=== PATIENT | female | born 1965 | race Caucasian/White ===

== ENCOUNTER 2016-04-16 08:04 | Outpatient (CLI) | payer OTHER ==
--- NOTE | 2016-04-16 10:17 | DIAGNOSTIC IMAGING REPORT ---
PROCEDURE: CT IVP CLINICAL INDICATION: MICRO HEMATURIA TECHNIQUE: Preliminary AP and lateral press setup operator views of the abdomen were obtained. Subsequently, noncontrast axial images were obtained of the entire abdomen and pelvis. 125 ml of Isovue 300 was injected intravenously, and axial images were obtained of the abdomen and pelvis with biphasic imaging of the liver and kidneys, followed by sagittal and coronal reformations. Postinjection AP press setup operator view of the abdomen was also obtained. COMPARISON: None. FINDINGS: NONCONTRAST ABDOMEN: 6 x 4 mm proximal left ureteral calculus with mild left hydronephrosis. There are no additional urinary calculi. CONTRAST ABDOMEN: Small right renal cysts. Normal ureters. Minor left basilar scarring. Heart size is normal. Liver, gallbladder, pancreas, spleen and adrenal glands are normal. Normal abdominal aorta. Nonspecific bowel gas pattern. Small hiatal hernia. NONCONTRAST PELVIS: No evidence of bladder calculi. CONTRAST PELVIS: Normal bladder. Right lower quadrant surgical changes suggestive of appendectomy. Mild sigmoid diverticulosis. Hysterectomy. No suspicious mass, inflammatory changes or free fluid. Bones are unremarkable. IMPRESSION: 1. 6 x 4 mm proximal left ureteral calculus with mild left hydronephrosis. 2. Small right renal cysts 3. Small hiatal hernia 4. Hysterectomy and probable appendectomy 5. Mild sigmoid diverticulosis 6. Results called to Dr. Walter Augustine's office ([place]). All CT scans at this facility use dose modulation, iterative reconstruction, and/or weight-based dosing when appropriate to reduce radiation dose to as low as reasonably achievable.
--- NOTE | 2016-04-16 10:17 | DIAGNOSTIC IMAGING REPORT ---
PROCEDURE: CT IVP CLINICAL INDICATION: MICRO HEMATURIA TECHNIQUE: Preliminary AP and lateral director biomedical engineering views of the abdomen were obtained. Subsequently, noncontrast axial images were obtained of the entire abdomen and pelvis. 125 ml of Isovue 300 was injected intravenously, and axial images were obtained of the abdomen and pelvis with biphasic imaging of the liver and kidneys, followed by sagittal and coronal reformations. Postinjection AP director biomedical engineering view of the abdomen was also obtained. COMPARISON: None. FINDINGS: NONCONTRAST ABDOMEN: 6 x 4 mm proximal left ureteral calculus with mild left hydronephrosis. There are no additional urinary calculi. CONTRAST ABDOMEN: Small right renal cysts. Normal ureters. Minor left basilar scarring. Heart size is normal. Liver, gallbladder, pancreas, spleen and adrenal glands are normal. Normal abdominal aorta. Nonspecific bowel gas pattern. Small hiatal hernia. NONCONTRAST PELVIS: No evidence of bladder calculi. CONTRAST PELVIS: Normal bladder. Right lower quadrant surgical changes suggestive of appendectomy. Mild sigmoid diverticulosis. Hysterectomy. No suspicious mass, inflammatory changes or free fluid. Bones are unremarkable. IMPRESSION: 1. 6 x 4 mm proximal left ureteral calculus with mild left hydronephrosis. 2. Small right renal cysts 3. Small hiatal hernia 4. Hysterectomy and probable appendectomy 5. Mild sigmoid diverticulosis 6. Results called to Dr. Walter Augustine's office ([place]). All CT scans at this facility use dose modulation, iterative reconstruction, and/or weight-based dosing when appropriate to reduce radiation dose to as low as reasonably achievable.
== END 2016-04-16 23:00 ==
LOC: CT SRH 08:04
DX: N13.2 Hydronephrosis with renal and ureteral calculous obstruction (principal); N28.1 Cyst of kidney, acquired; K57.30 Diverticulosis of large intestine without perforation or abscess without bleeding
CPT/HCPCS: 90074; 91631; 92560

== ENCOUNTER 2016-08-05 13:37 | Emergency (ER) | payer OTHER ==
--- NOTE | 2016-08-05 16:07 | DIAGNOSTIC IMAGING REPORT ---
PROCEDURE: CT ABDOMEN/PELVIS W/O CONTRAST INDICATION: HX OF STONES, left flank pain. TECHNIQUE: Noncontrast axial images were obtained of the entire abdomen and pelvis with sagittal and coronal reformations. COMPARISON: CT IVP 04/16/2016. FINDINGS: ABDOMEN: The previously noted 5 mm proximal left ureteral calculus is now located at the left UVJ with mild to moderate left hydroureteronephrosis. Mild enlargement of left kidney with minor perinephric edema. No additional urinary calculi. Small right renal cyst. Lung base are clear. Heart size is normal. Liver, gallbladder, pancreas, spleen and adrenal glands are normal. Normal abdominal aorta. Nonspecific bowel gas pattern. Small hiatal hernia. PELVIS: Right lower quadrant surgical changes suggestive of an appendectomy. Mild sigmoid diverticulosis. Hysterectomy. Normal bladder. No inflammatory changes or free fluid. Bones are unremarkable. IMPRESSION: 1. 5 mm left UVJ calculus with mild to moderate left hydroureteronephrosis 2. Appendectomy and hysterectomy 3. Mild sigmoid diverticulosis 4. Results discussed with Lissy Arias All CT scans at this facility use dose modulation, iterative reconstruction, and/or weight-based dosing when appropriate to reduce radiation dose to as low as reasonably achievable.
--- NOTE | 2016-08-05 16:17 | ED CLINICAL REPORT ---
Clinical Report - Physicians/Mid Levels [facility] [address] [place] [address] 08/05/2016 13:36 Patient: AMY CHA Time Seen: 14:03; initial patient contact, initial documentation, patient care assumed. Arrived- By private vehicle. Historian- patient. HISTORY OF PRESENT ILLNESS Chief Complaint: DYSURIA. This started yesterday and still present. It was abrupt in onset and has been intermittent. The symptoms are described as severe. The patient has had abdominal pain and lower back pain. No pelvic pain, vaginal pain, flank pain, abnormal bleeding or vaginal discharge. No urinary frequency, urgency of urination or hematuria. The patient has had pain with urination. Sexually active. (states she was dx with kidney stones in Apr, by CT scan by urologist, and was told that the stones were small and would pass, but she thinks they are still there, c/o pain weekly, states the pain comes and goes, and got worse yesterday, when she felt like she couldn't urinate and it hurts to go). Denies current . Not receiving care. Similar symptoms previously: Frequently, as bad. Recent medical care: Not recently seen/assessed. REVIEW OF SYSTEMS No nausea, vomiting, diarrhea, fever or difficulty breathing. No chest pain. All systems otherwise negative, except as recorded above. PAST HISTORY See nurses notes. ( PROBLEMS: Anxiety Reaction. Depression. --13:48 Sheriff Lacie, RElN.). Urinary calculi. SOCIAL HISTORY Never smoker. No alcohol use or drug use. No recent travel. Is a local resident. FAMILY HISTORY Negative. ADDITIONAL NOTES The nursing notes have been reviewed with agreement regarding the chief complaint, HPI, ROS, PMH and patient medications and allergies. PHYSICAL EXAM Vital Signs: 08/05/2016 13:46 BP: 143/77. HR: 59. RR: 20. O2 saturation: 100%. Temp: 97.6 F. Pain level now: 8/10. Have been reviewed as normal and appear to be correct. Appearance: Alert. Oriented X3. No acute distress. HEENT: Normal external inspection. ENT: Pharynx normal. Neck: Neck supple. CVS: Heart sounds normal. Respiratory: No respiratory distress. Breath sounds normal. Chest nontender. Abdomen: Soft and nontender. Bowel sounds normal. No organomegaly. No mass. Back: Normal external inspection. Skin: Skin warm and dry. Normal skin color. No rash. Normal skin turgor. Extremities: Extremities nontender. No lower extremity edema. Neuro: Oriented X 3. Mood/affect normal. No motor deficit. No sensory deficit. LABS, X-RAYS, AND EKG Abdominal CT: . IMPRESSION: 1. 5 mm left UVJ calculus with mild to moderate left hydroureteronephrosis 2. Appendectomy and hysterectomy 3. Mild sigmoid diverticulosis 4. Results discussed with Lissy Arias All CT scans at this facility use dose modulation, iterative reconstruction, and/or weight-based dosing when appropriate to reduce radiation dose to as low as reasonably achievable. Electronically Final signed by:Tristan Roche MD 08/05/2016 4:07:01 PM. The study was interpreted by the radiologist and discussed with the radiologist. Interpretation time: 16:08. Laboratory Tests: UA-Culture if indicated: (BRANDI: 08/05/2016 14:25) ( MsgRcvd 08/05/2016 14:47) Final results Test Result Flag Units (Reference) URINE COLOR STRAW URINE APPEARANCE CLEAR URINE GLUCOSE NEGATIVE (NEGATIVE) URINE BILIRUBIN NEGATIVE (NEGATIVE) URINE KETONE NEGATIVE (NEGATIVE) URINE SPECIFIC GRAVITY <= 1.005 L (1.010-1.030) URINE PH 6.0 (5.0-8.0) URINE PROTEIN NEGATIVE (NEGATIVE) URINE UROBILINOGEN 0.2 EU/dL (0.2-1.0) URINE NITRITE NEGATIVE (NEGATIVE) URINE BLOOD 2+ (NEGATIVE) URINE LEUK ESTERASE NEGATIVE (NEGATIVE) URINE RBC RARE rbc/hpf (0-1) URINE WBC RARE wbc/hpf (0-1) URINE EPITHELIAL CELLS RARE EPI/hpf (0-5) URINE BACTERIA NONE SEEN (NONE SEEN) URINE COMMENT CULT NOT INDICATED URINE CULTURES ARE SET-UP BASED ON THE FOLLOWING CRITERIA:POSITIVE NITRITEPOSITIVE LEUKOCYTE ESTERASEGREATER THAN 10 WHITE BLOOD CELLSMODERATE (2+) OR GREATER BACTERIA Urine: (BRANID: 08/05/2016 14:25) ( AlgRcvd 08/05/2016 14:36) Final results Test Result Flag Units (Reference) URINE NEGATIVE CBC w Diff: (BRANDI: 08/05/2016 14:01) ( MsgRcvd 08/05/2016 14:28) Final results Test Result Flag Units (Reference) WHITE BLOOD COUNT 6.1 K/uL (4.5-11.5) RED BLOOD COUNT 4.51 M/uL (4.00-5.20) HEMOGLOBIN 13.0 gm/dL (12.0-16.0) HEMATOCRIT 39.6 % (36.0-46.0) MEAN CELL VOLUME 88 fL (80-100) MEAN CORPUSCULAR HGB 29 pg (26-34) MEAN CORPUSCULAR HGB CONC 33 g/dL (31-37) RED CELL DISTRIBUTION WIDTH 14.1 % (11.6-14.8) PLATELET COUNT 203 K/uL (150-400) NEUTROPHIL % 71.1 % (50-75) LYMPH % 20.3 L % (25-40) MONO % 7.5 % (3-14) EOSINOPHIL % 0.8 % (0-4) BASOPHIL % 0.3 % (0-2) CMP: (BRANDI: 08/05/2016 14:01) ( AlgRcvd 08/05/2016 15:00) Final results Test Result Flag Units (Reference) GLUCOSE 90 mg/dL (70-110) BUN 17 mg/dL (7-18) CREATININE 1.1 mg/dL (0.6-1.3) Estimated GFR 55.66 mL/min Estimated GFR- >60 mL/min Note: Persistent reduction over 3 months in eGFR<60 mL/min/1.73 m2 defines CKD. Patients with eGFR values>=60 mL/min/1.73 m2 may also have CKD if evidence ofpersistent proteinuria. Additional information may be foundat www.kidney.org. SODIUM 136 mmol/L (136-145) POTASSIUM 3.6 mmol/L (3.5-5.1) CHLORIDE 100 mmol/L (98-107) CARBON DIOXIDE 26 mmol/L (21-32) CALCIUM 8.6 mg/dL (8.5-10.1) TOTAL PROTEIN 7.2 g/dL (6.4-8.2) ALBUMIN 4.0 g/dL (3.3-5.0) BILIRUBIN, TOTAL 0.4 mg/dL (0.0-1.0) ALKALINE PHOSPHATASE 53 U/L (46-116) AST (SGOT) 16 U/L (15-37) ALT (SGPT) 19 U/L (12-78) LIPASE 193 U/L (73-393) AMYLASE 50 U/L (25-115) . PROGRESS AND PROCEDURES Course of Care: nurse reporting bladder scan 208 and pt stated she voided large amount in restroom 15:07 08/05/16. pt aware of lab results and ct order. Patient counseled in person regarding the patient's stable condition, test results and diagnosis. 16:08. Differential Diagnosis: Other possible considerations: kidney stones, pyelo, uti, urinary retention, cystitis, kidney insufficiency/failure. Above considerations are based on history, physical exam, reassessment and laboratory data. Differential diagnosis was discussed with patient. Disposition: Discharged home in good and improved condition (16:16). Condition: good and stable. CLINICAL IMPRESSION Ureterolithiasis (single stone) in the left ureter with renal colic and hydronephrosis. No acute pyelonephritis, urinary tract infection or hematuria. INSTRUCTIONS Do not work today, tomorrow. Drink plenty of fluids. (start flomax as directed and discussed, strain all urine). Warnings: GENERAL WARNINGS: Return or contact your physician immediately if your condition worsens or changes unexpectedly, if not improving as expected, or if other problems arise. Specifically return if problem worsens. Prescription Medications: Zofran 4 mg: Take 1 orally every six hours as needed for nausea/vomiting. Dispense ten (10). No refills. Substitution is permissible. [place] 5 mg / 325 mg tablets: take 1 to 2 orally every 6 hours as needed for pain. Dispense fifteen (15). No refills. Substitution is permissible. Toradol 10 mg tablets: Take 1 tablet orally every 6 hours as needed. Dispense fifteen (15). No refills. Substitution is permissible. Follow-up: Follow up with your doctor in about three days even if well. Call for an appointment. Summary of care provided to patient. Understanding of the discharge instructions verbalized by patient. Follow-up with: Jose Lock MD, Urology, , [address] [facility] , [place] [address]; Jose Campos MD, Urology, , [address] [place] [address] Follow up in about three days as needed. Call for an appointment. Summary of care provided to patient. (Electronically signed by Lissy Arias A.R.N.P. 08/05/2016 17:46)
--- NOTE | 2016-08-05 16:17 | ED NURSING NOTES ---
Clinical Report - Nurses [facility] [place] [address] 08/05/2016 13:36 Patient: AMY CHA TRIAGE Chief Complaint: PAINFUL URINATION. --13:50 Sheriff Medellin R.N. 13:46 08/05/16. BP: 143/77. HR: 59. RR: 20. O2 saturation: 100%. Temp: 97.6 F. Pain level now: 10/08. --13:50 Sheriff Medellin R.N. Weight: 56.6 kg stated. Height/Length: 61 inches Per Patient. BMI: 23.6. --13:48 Sheriff Medellin R.N. Medications Prozac Oral 40mg, daily. Wellbutrin Oral 150 mg, daily. --13:47 Sheriff Medellin R.N. Allergies None. --13:47 Sheriff Medellin R.N. History ( History of kidney stones. Abdominal and back pain worst this morning. Dysuria). SURGERY HX: Had hysterectomy. SOCIAL HX: Never smoker. No alcohol use or drug use. FALL RISK ASSESSMENT: Fall risk assessment completed. No fall risk identified. NUTRITIONAL RISK ASSESSMENT: The nutritional risk assessment revealed no deficiencies. FUNCTIONAL ASSESSMENT: Functional assessment: no impairments noted. LEARNING NEEDS ASSESSMENT: The learning needs assessment revealed no barriers. SKIN INTEGRITY ASSESSMENT: Skin integrity risk assessment completed. No skin integrity risk identified. --13:50 Sheriff Medellin R.N. PROBLEMS: Anxiety Reaction. Depression. --13:48 Sheriff Medellin R.N. PHYSICAL ASSESSMENT Ambulatory to room. Patient gowned. GENERAL / NEURO / PSYCH: Alert. Oriented X 4. Appears in no acute distress. HEENT: Mucous membranes are pink. RESPIRATORY: Respirations not labored. CVS: Capillary refill less than 2 seconds. SKIN: Skin is warm and dry. --13:50 Sheriff Medellin R.N. NURSING PROGRESS NOTES Head of bed elevated. Two patient identifiers checked. Call light placed in reach. Side rails up x 2. Bed placed in lowest position. Brakes of bed on. --13:51 Sheriff Medellin R.N. 14:05 08/05/2016 Started bag #1 1000 mL IV Fluids IV NS (Saline); at 1000 mL/hr over 1 hour(s) via site #1. Allergies verified and confirmed 5 rights. IV patency established. IV site checked: no pain, redness, or swelling. IV flushed thoroughly pre- and post-medication administration. --14:15 Sheriff Medellin R.N. 14:14 08/05/2016 Site #1 started via IV in the right antecubital space with an 20g angiocath, with aseptic technique and good blood return; one attempt. Blood drawn: rainbow set. Labeled in the presence of the patient and sent to the lab. Saline lock flushed with 10 mL saline. --14:14 Sheriff Medellin R.N. 14:18 08/05/2016 Toradol IVP 30 mg given over 1 minute(s) via site #1. Allergies verified and confirmed 5 rights. IV patency established. IV site checked: no pain, redness, or swelling. IV flushed thoroughly pre- and post-medication administration. IVP given by RN. --14:18 Sheriff Medellin R.N. ( Patient bladder scanned, 210ml.). --15:02 Amari Goldstein, ER Tech1. DISPOSITION / DISCHARGE 16:45 08/05/2016 Site #1 removed upon discharge. Bandaid applied. --16:45 Sheriff Medellin R.N. No learning barriers present. Discharge instructions provided and reviewed with the patient. Reviewed medication(s) side effects, precautions, dosing and course information. Prescription(s) given to the parent. Patient verbalized understanding. Written instructions provided in [place]. The patient was discharged by the physician. She was discharged home and accompanied by spouse. She left the Emergency Department ambulatory and via private vehicle. Patient driving. --16:46 Sheriff Medellin R.N. Locked/Released at 08/05/2016 16:48 by Sheriff Medellin R.N.
--- NOTE | 2016-08-05 16:17 | ED NURSING NOTES ---
Clinical Report - Nurses [facility] [place] [address] [place] [address] 08/05/2016 13:36 Patient: AMY CHA TRIAGE Chief Complaint: PAINFUL URINATION. --13:50 Sheriff Medellin R.N. 13:46 08/05/16. BP: 143/77. HR: 59. RR: 20. O2 saturation: 100%. Temp: 97.6 F. Pain level now: 10/08. --13:50 Sheriff Medellin R.N. Weight: 56.6 kg stated. Height/Length: 61 inches Per Patient. BMI: 23.6. --13:48 Sheriff Medellin R.N. Medications Prozac Oral 40mg, daily. Wellbutrin Oral 150 mg, daily. --13:47 Sheriff Medellin R.N. Allergies None. --13:47 Sheriff Medellin R.N. History ( History of kidney stones. Abdominal and back pain worst this morning. Dysuria). SURGERY HX: Had hysterectomy. SOCIAL HX: Never smoker. No alcohol use or drug use. FALL RISK ASSESSMENT: Fall risk assessment completed. No fall risk identified. NUTRITIONAL RISK ASSESSMENT: The nutritional risk assessment revealed no deficiencies. FUNCTIONAL ASSESSMENT: Functional assessment: no impairments noted. LEARNING NEEDS ASSESSMENT: The learning needs assessment revealed no barriers. SKIN INTEGRITY ASSESSMENT: Skin integrity risk assessment completed. No skin integrity risk identified. --13:50 Sheriff Medellin R.N. PROBLEMS: Anxiety Reaction. Depression. --13:48 Sheriff Medellin R.N. PHYSICAL ASSESSMENT Ambulatory to room. Patient gowned. GENERAL / NEURO / PSYCH: Alert. Oriented X 4. Appears in no acute distress. HEENT: Mucous membranes are pink. RESPIRATORY: Respirations not labored. CVS: Capillary refill less than 2 seconds. SKIN: Skin is warm and dry. --13:50 Sheriff Medellin R.N. NURSING PROGRESS NOTES Head of bed elevated. Two patient identifiers checked. Call light placed in reach. Side rails up x 2. Bed placed in lowest position. Brakes of bed on. --13:51 Sheriff Medellin R.N. 14:05 08/05/2016 Started bag #1 1000 mL IV Fluids IV NS (Saline); at 1000 mL/hr over 1 hour(s) via site #1. Allergies verified and confirmed 5 rights. IV patency established. IV site checked: no pain, redness, or swelling. IV flushed thoroughly pre- and post-medication administration. --14:15 Sheriff Medellin R.N. 14:14 08/05/2016 Site #1 started via IV in the right antecubital space with an 20g angiocath, with aseptic technique and good blood return; one attempt. Blood drawn: rainbow set. Labeled in the presence of the patient and sent to the lab. Saline lock flushed with 10 mL saline. --14:14 Sheriff Medellin R.N. 14:18 08/05/2016 Toradol IVP 30 mg given over 1 minute(s) via site #1. Allergies verified and confirmed 5 rights. IV patency established. IV site checked: no pain, redness, or swelling. IV flushed thoroughly pre- and post-medication administration. IVP given by RN. --14:18 Sheriff Medellin R.N. ( Patient bladder scanned, 210ml.). --15:02 Amari Goldstein, ER Tech1. DISPOSITION / DISCHARGE 16:45 08/05/2016 Site #1 removed upon discharge. Bandaid applied. --16:45 Sheriff Medellin R.N. No learning barriers present. Discharge instructions provided and reviewed with the patient. Reviewed medication(s) side effects, precautions, dosing and course information. Prescription(s) given to the parent. Patient verbalized understanding. Written instructions provided in [place]. The patient was discharged by the physician. She was discharged home and accompanied by spouse. She left the Emergency Department ambulatory and via private vehicle. Patient driving. --16:46 Sheriff Medellin R.N. Locked/Released at 08/05/2016 16:48 by Sheriff Medellin R.N.
--- NOTE | 2016-08-05 16:17 | ED ORDER SUMMARY ---
..... Patient: AMY CHA OrderSheet [facility] VisitID: [id number] [place] [address] 51y, F Registration Date/Time: 08/05/2016 ORDER SHEET Weight: 56.6 kg (stated) Allergies: None GENERAL ORDERS: UA-Culture if indicated Urgent (14:10 08/05/2016 HBivens A.R.N.P.) (Ack 14:12 LNations ER Tech1) CBC w Diff Urgent (14:08/05/2016 HBivens A.R.N.P.) (Ack 14:12 LNations ER Tech1) CMP Urgent (14:08/05/2016 HBivens A.R.N.P.) (Ack 14:12 LNations ER Tech1) Amylase Urgent (14:10 08/05/2016 HBivens A.R.N.P.) (Ack 14:12 LNations ER Tech1) Lipase Urgent (14:08/05/2016 HBivens A.R.N.P.) (Ack 14:13 LNations ER Tech1) Urine Urgent (14:10 08/05/2016 HBivens A.R.N.P.) (Ack 14:13 LNations ER Tech1) Bladder Scan (14:10 08/05/2016 HBivens A.R.N.P.) (14:45 SSambou R.N.) CT Abd/Pel wo Cont Urgent (15:06 08/05/2016 HBivens A.R.N.P.) (Ack 15:21 LNations ER Tech1) (16:33 MCampbell) Urine Strainer (16:18 08/05/2016 HBivens A.R.N.P.) MEDICATION ORDERS: IV FLUIDS: IV NS : initial bolus 1000 mL (1000 mL/hr), then none - for X1 (NOW) (14:10 08/05/2016 HBivens A.R.N.P.) (14:15 SSambou R.N.) Toradol IV 30 mg (NOW) (14:08/05/2016 HBivens A.R.N.P.) (14:18 SSambou R.N.) IV Saline Lock (14:10 08/05/2016 Joni Mathews.R.N.P.) (14:14 Torie Gallegos.Sabrina) ORDER SHEET NOTES: [Electronically signed by Sheriff Natasha Medellin (16:48 08/05/2016)] [Electronically signed by Lissy AriasRElNElPEl (17:46 08/05/2016)] [Electronically locked/signed by Sheriff Natasha Medellin (16:48 08/05/2016)]
--- NOTE | 2016-08-05 16:17 | ED ORDER SUMMARY ---
..... Patient: AMY CHA OrderSheet [facility] VisitID: [id number] [place] [address] 51y, F Registration Date/Time: 08/05/2016 ORDER SHEET Weight: 56.6 kg (stated) Allergies: None GENERAL ORDERS: UA-Culture if indicated Urgent (14:10 08/05/2016 HBivens A.R.N.P.) (Ack 14:12 LNations ER Tech1) CBC w Diff Urgent (14:08/05/2016 HBivens A.R.N.P.) (Ack 14:12 LNations ER Tech1) CMP Urgent (14:08/05/2016 HBivens A.R.N.P.) (Ack 14:12 LNations ER Tech1) Amylase Urgent (14:10 08/05/2016 HBivens A.R.N.P.) (Ack 14:12 LNations ER Tech1) Lipase Urgent (14:08/05/2016 HBivens A.R.N.P.) (Ack 14:13 LNations ER Tech1) Urine Urgent (14:10 08/05/2016 HBivens A.R.N.P.) (Ack 14:13 LNations ER Tech1) Bladder Scan (14:10 08/05/2016 HBivens A.R.N.P.) (14:45 SSambou R.N.) CT Abd/Pel wo Cont Urgent (15:06 08/05/2016 HBivens A.R.N.P.) (Ack 15:21 LNations ER Tech1) (16:33 MCampbell) Urine Strainer (16:18 08/05/2016 HBivens A.R.N.P.) MEDICATION ORDERS: IV FLUIDS: IV NS : initial bolus 1000 mL (1000 mL/hr), then none - for X1 (NOW) (14:10 08/05/2016 HBivens A.R.N.P.) (14:15 SSambou R.N.) Toradol IV 30 mg (NOW) (14:08/05/2016 HBivens A.R.N.P.) (14:18 SSambou R.N.) IV Saline Lock (14:10 08/05/2016 Joni Mathews.R.N.P.) (14:14 Torie Gallegos.Sabrina) ORDER SHEET NOTES: [Electronically signed by Sheriff Natasha Medellin (16:48 08/05/2016)] [Electronically signed by Lissy AriasRElNElPEl (17:46 08/05/2016)] [Electronically locked/signed by Sheriff Natasha Medellin (16:48 08/05/2016)]
--- NOTE | 2016-08-05 16:17 | ED CLINICAL REPORT ---
Clinical Report - Physicians/Mid Levels [facility] [address] [place] [address] 08/05/2016 13:36 Patient: AMY CHA Time Seen: 14:03; initial patient contact, initial documentation, patient care assumed. Arrived- By private vehicle. Historian- patient. HISTORY OF PRESENT ILLNESS Chief Complaint: DYSURIA. This started yesterday and still present. It was abrupt in onset and has been intermittent. The symptoms are described as severe. The patient has had abdominal pain and lower back pain. No pelvic pain, vaginal pain, flank pain, abnormal bleeding or vaginal discharge. No urinary frequency, urgency of urination or hematuria. The patient has had pain with urination. Sexually active. (states she was dx with kidney stones in Apr, by CT scan by urologist, and was told that the stones were small and would pass, but she thinks they are still there, c/o pain weekly, states the pain comes and goes, and got worse yesterday, when she felt like she couldn't urinate and it hurts to go). Denies current . Not receiving care. Similar symptoms previously: Frequently, as bad. Recent medical care: Not recently seen/assessed. REVIEW OF SYSTEMS No nausea, vomiting, diarrhea, fever or difficulty breathing. No chest pain. All systems otherwise negative, except as recorded above. PAST HISTORY See nurses notes. ( PROBLEMS: Anxiety Reaction. Depression. --13:48 Sheriff Lacie, RElN.). Urinary calculi. SOCIAL HISTORY Never smoker. No alcohol use or drug use. No recent travel. Is a local resident. FAMILY HISTORY Negative. ADDITIONAL NOTES The nursing notes have been reviewed with agreement regarding the chief complaint, HPI, ROS, PMH and patient medications and allergies. PHYSICAL EXAM Vital Signs: 08/05/2016 13:46 BP: 143/77. HR: 59. RR: 20. O2 saturation: 100%. Temp: 97.6 F. Pain level now: 8/10. Have been reviewed as normal and appear to be correct. Appearance: Alert. Oriented X3. No acute distress. HEENT: Normal external inspection. ENT: Pharynx normal. Neck: Neck supple. CVS: Heart sounds normal. Respiratory: No respiratory distress. Breath sounds normal. Chest nontender. Abdomen: Soft and nontender. Bowel sounds normal. No organomegaly. No mass. Back: Normal external inspection. Skin: Skin warm and dry. Normal skin color. No rash. Normal skin turgor. Extremities: Extremities nontender. No lower extremity edema. Neuro: Oriented X 3. Mood/affect normal. No motor deficit. No sensory deficit. LABS, X-RAYS, AND EKG Abdominal CT: . IMPRESSION: 1. 5 mm left UVJ calculus with mild to moderate left hydroureteronephrosis 2. Appendectomy and hysterectomy 3. Mild sigmoid diverticulosis 4. Results discussed with Lissy Arias All CT scans at this facility use dose modulation, iterative reconstruction, and/or weight-based dosing when appropriate to reduce radiation dose to as low as reasonably achievable. Electronically Final signed by:Tristan Roche MD 08/05/2016 4:07:01 PM. The study was interpreted by the radiologist and discussed with the radiologist. Interpretation time: 16:08. Laboratory Tests: UA-Culture if indicated: (BRANDI: 08/05/2016 14:25) ( MsgRcvd 08/05/2016 14:47) Final results Test Result Flag Units (Reference) URINE COLOR STRAW URINE APPEARANCE CLEAR URINE GLUCOSE NEGATIVE (NEGATIVE) URINE BILIRUBIN NEGATIVE (NEGATIVE) URINE KETONE NEGATIVE (NEGATIVE) URINE SPECIFIC GRAVITY <= 1.005 L (1.010-1.030) URINE PH 6.0 (5.0-8.0) URINE PROTEIN NEGATIVE (NEGATIVE) URINE UROBILINOGEN 0.2 EU/dL (0.2-1.0) URINE NITRITE NEGATIVE (NEGATIVE) URINE BLOOD 2+ (NEGATIVE) URINE LEUK ESTERASE NEGATIVE (NEGATIVE) URINE RBC RARE rbc/hpf (0-1) URINE WBC RARE wbc/hpf (0-1) URINE EPITHELIAL CELLS RARE EPI/hpf (0-5) URINE BACTERIA NONE SEEN (NONE SEEN) URINE COMMENT CULT NOT INDICATED URINE CULTURES ARE SET-UP BASED ON THE FOLLOWING CRITERIA:POSITIVE NITRITEPOSITIVE LEUKOCYTE ESTERASEGREATER THAN 10 WHITE BLOOD CELLSMODERATE (2+) OR GREATER BACTERIA Urine: (BRANDI: 08/05/2016 14:25) ( CogRcvd 08/05/2016 14:36) Final results Test Result Flag Units (Reference) URINE NEGATIVE CBC w Diff: (BRANDI: 08/05/2016 14:01) ( MsgRcvd 08/05/2016 14:28) Final results Test Result Flag Units (Reference) WHITE BLOOD COUNT 6.1 K/uL (4.5-11.5) RED BLOOD COUNT 4.51 M/uL (4.00-5.20) HEMOGLOBIN 13.0 gm/dL (12.0-16.0) HEMATOCRIT 39.6 % (36.0-46.0) MEAN CELL VOLUME 88 fL (80-100) MEAN CORPUSCULAR HGB 29 pg (26-34) MEAN CORPUSCULAR HGB CONC 33 g/dL (31-37) RED CELL DISTRIBUTION WIDTH 14.1 % (11.6-14.8) PLATELET COUNT 203 K/uL (150-400) NEUTROPHIL % 71.1 % (50-75) LYMPH % 20.3 L % (25-40) MONO % 7.5 % (3-14) EOSINOPHIL % 0.8 % (0-4) BASOPHIL % 0.3 % (0-2) CMP: (BRANDI: 08/05/2016 14:01) ( CogRcvd 08/05/2016 15:00) Final results Test Result Flag Units (Reference) GLUCOSE 90 mg/dL (70-110) BUN 17 mg/dL (7-18) CREATININE 1.1 mg/dL (0.6-1.3) Estimated GFR 55.66 mL/min Estimated GFR- >60 mL/min Note: Persistent reduction over 3 months in eGFR<60 mL/min/1.73 m2 defines CKD. Patients with eGFR values>=60 mL/min/1.73 m2 may also have CKD if evidence ofpersistent proteinuria. Additional information may be foundat www.kidney.org. SODIUM 136 mmol/L (136-145) POTASSIUM 3.6 mmol/L (3.5-5.1) CHLORIDE 100 mmol/L (98-107) CARBON DIOXIDE 26 mmol/L (21-32) CALCIUM 8.6 mg/dL (8.5-10.1) TOTAL PROTEIN 7.2 g/dL (6.4-8.2) ALBUMIN 4.0 g/dL (3.3-5.0) BILIRUBIN, TOTAL 0.4 mg/dL (0.0-1.0) ALKALINE PHOSPHATASE 53 U/L (46-116) AST (SGOT) 16 U/L (15-37) ALT (SGPT) 19 U/L (12-78) LIPASE 193 U/L (73-393) AMYLASE 50 U/L (25-115) . PROGRESS AND PROCEDURES Course of Care: nurse reporting bladder scan 208 and pt stated she voided large amount in restroom 15:07 08/05/16. pt aware of lab results and ct order. Patient counseled in person regarding the patient's stable condition, test results and diagnosis. 16:08. Differential Diagnosis: Other possible considerations: kidney stones, pyelo, uti, urinary retention, cystitis, kidney insufficiency/failure. Above considerations are based on history, physical exam, reassessment and laboratory data. Differential diagnosis was discussed with patient. Disposition: Discharged home in good and improved condition (16:16). Condition: good and stable. CLINICAL IMPRESSION Ureterolithiasis (single stone) in the left ureter with renal colic and hydronephrosis. No acute pyelonephritis, urinary tract infection or hematuria. INSTRUCTIONS Do not work today, tomorrow. Drink plenty of fluids. (start flomax as directed and discussed, strain all urine). Warnings: GENERAL WARNINGS: Return or contact your physician immediately if your condition worsens or changes unexpectedly, if not improving as expected, or if other problems arise. Specifically return if problem worsens. Prescription Medications: Zofran 4 mg: Take 1 orally every six hours as needed for nausea/vomiting. Dispense ten (10). No refills. Substitution is permissible. [place] 5 mg / 325 mg tablets: take 1 to 2 orally every 6 hours as needed for pain. Dispense fifteen (15). No refills. Substitution is permissible. Toradol 10 mg tablets: Take 1 tablet orally every 6 hours as needed. Dispense fifteen (15). No refills. Substitution is permissible. Follow-up: Follow up with your doctor in about three days even if well. Call for an appointment. Summary of care provided to patient. Understanding of the discharge instructions verbalized by patient. Follow-up with: Jose Lock MD, Urology, , [address] [place] , [place] [address]; Jose Campos MD, Urology, , [address] [place] [address] Follow up in about three days as needed. Call for an appointment. Summary of care provided to patient. (Electronically signed by Lissy Arias A.R.N.P. 08/05/2016 17:46)
--- NOTE | 2016-08-05 17:47 | ED MAR SUMMARY ---
..... Medication Administration Record [facility] [address] [place] [address] Patient: AMY CHA Visit ID: [id number] 51y, F Weight: 56.6 kg Height/Length: 61 in BMI: 23.6 ALLERGIES: None Start 14:05 08/05/2016 Sheriff Medellin R.N. Medication Administered: IV NS (SALINE), Dose: IV Fluids over 1 hour(s), Rate: 1000 mL/hr, Dispensed: 1000 mL bag, Site: #1. Medication Ordered: IV NS : initial bolus 1000 mL (1000 mL/hr), then none - for X1 (NOW). Given 14:18 08/05/2016 Sheriff Medellin R.N. Medication Administered: TORADOL [IVP], Dose: 30 mg IVP over 1 minute(s), Site: #1 right AC. Medication Ordered: Toradol IV 30 mg (NOW).
--- NOTE | 2016-08-05 17:47 | ED MED RECONCILIATION SUMMARY ---
Patient: AYM CHA Medication Reconciliation Report [facility] VisitID: [id number] [place] [address] 51y, F Registration Date/Time: 08/05/2016 Weight: 56.6 kg Height/Length: 61 in. BMI: 23.6 ALLERGIES: None The patient's Home Medications are listed below: THE FOLLOWING MEDICATIONS NEED TO BE RECONCILED: Prozac Oral 40mg, daily Wellbutrin Oral 150 mg, daily The source(s) of the original Home Medication information: Not obtained. The following Medications were given to the patient in the Emergency Department: IV NS IV Fluids bolus 0, then 1000 mL/hr, administered: 08/05/2016 2:05:00 PM Toradol [IVP] IVP 30 mg, administered: 08/05/2016 2:18:00 PM The following Medications were prescribed to the patient: Zofran 4 mg: Take 1 orally every six hours as needed for nausea/vomiting. Dispense ten (10). No refills. Substitution is permissible. -- Lissy Arias, A.R.N.P. [place] 5 mg / 325 mg tablets: take 1 to 2 orally every 6 hours as needed for pain. Dispense fifteen (15). No refills. Substitution is permissible. -- Lissy Arias A.R.N.P. Toradol 10 mg tablets: Take 1 tablet orally every 6 hours as needed. Dispense fifteen (15). No refills. Substitution is permissible. -- Lissy Arias A.R.N.P.
--- NOTE | 2016-08-05 17:47 | ED MAR SUMMARY ---
..... Medication Administration Record [facility] [address] [place] [address] Patient: AMY CHA Visit ID: [id number] 51y, F Weight: 56.6 kg Height/Length: 61 in BMI: 23.6 ALLERGIES: None Start 14:05 08/05/2016 Sheriff Medellin R.N. Medication Administered: IV NS (SALINE), Dose: IV Fluids over 1 hour(s), Rate: 1000 mL/hr, Dispensed: 1000 mL bag, Site: #1. Medication Ordered: IV NS : initial bolus 1000 mL (1000 mL/hr), then none - for X1 (NOW). Given 14:18 08/05/2016 Sheriff Medellin R.N. Medication Administered: TORADOL [IVP], Dose: 30 mg IVP over 1 minute(s), Site: #1 right AC. Medication Ordered: Toradol IV 30 mg (NOW).
--- NOTE | 2016-08-05 17:47 | ED DISCHARGE INSTRUCTIONS ---
Patient: AMY CHA General Instructions [facility] VisitID: [id number] [place] [address] 51y, F Registration Date/Time: 08/05/2016 Ureterolithiasis (single stone) in the left ureter with renal colic and hydronephrosis. No acute pyelonephritis, urinary tract infection or hematuria. INSTRUCTIONS Do not work today, tomorrow. Drink plenty of fluids. (start flomax as directed and discussed, strain all urine). Warnings: GENERAL WARNINGS: Return or contact your physician immediately if your condition worsens or changes unexpectedly, if not improving as expected, or if other problems arise. Specifically return if problem worsens. Prescription Medications: Zofran 4 mg: Take 1 orally every six hours as needed for nausea/vomiting. Dispense ten (10). No refills. Substitution is permissible. [place] 5 mg / 325 mg tablets: take 1 to 2 orally every 6 hours as needed for pain. Dispense fifteen (15). No refills. Substitution is permissible. Toradol 10 mg tablets: Take 1 tablet orally every 6 hours as needed. Dispense fifteen (15). No refills. Substitution is permissible. Follow-up: Follow up with your doctor in about three days even if well. Call for an appointment. Summary of care provided to patient. Understanding of the discharge instructions verbalized by patient. Follow-up with: Jose Lock MD, Urology, , [address] [address]; Jose Campos MD, Urology, , [address] [address] Follow up in about three days as needed. Call for an appointment. Summary of care provided to patient. ADDITIONAL INFORMATION Kidney Stone (W/ Colic) The sharp cramping pain and nausea/vomiting that you have is due to a small stone which has formed in the kidney and is now passing down a narrow tube (ureter) on its way to your bladder. Once it reaches your bladder, the pain will stop. The stone may pass in your urine stream in one piece. [The size may be 1/16" to 1/4" (1-6mm)]. Or, the stone may also break up into umer fragments which you may not even notice. Once you have had a kidney stone, you are at risk for developing another one in the future. Home Care: Drink plenty of fluids (at least 8 to 10 glasses of water a day). Most stones will pass on their own, but may take from a few hours to a few days. Sometimes the stone is too large to pass by itself and special methods will have to be used to remove the stone. Each time you urinate, do so in a jar. Pour the urine from the jar through the strainer and into the toilet. Continue doing this until 24 hours after your pain stops. By then, if there was a kidney stone, it should pass from your bladder. Some stones dissolve into sand-like particles and pass right through the strainer. In that case, you wont ever see a stone. Save any stone that you find in the strainer and bring it to your doctor for analysis. It may be possible to prevent certain types of stones from forming. Therefore, it is important to know what kind of stone you have. Try to stay as active as possible since this will help the stone pass. Do not stay in bed unless your pain prevents you from getting up. You may notice a red, pink or brown color to your urine. This is normal while passing a kidney stone. Follow Up with your doctor or return to this facility if the pain lasts more than 48 hours. Get Prompt Medical Attention if any of the following occur: Pain that is not controlled by the medicine given Repeated vomiting or unable to keep down fluids Weakness, dizziness or fainting Fever of 100.4F (38C) or higher, or as directed by your healthcare provider Passage of solid red or brown urine (can't see through it) or urine with lots of blood clots Unable to pass urine for 8 hours and increasing bladder pressure Ondansetron Oral disintegrating tablet What is this medicine? ONDANSETRON (on BUSTER se monserrat) is used to treat nausea and vomiting caused by chemotherapy. It is also used to prevent or treat nausea and vomiting after surgery. How should I use this medicine? These tablets are made to dissolve in the mouth. Do not try to push the tablet through the foil backing. With dry hands, peel away the foil backing and gently remove the tablet. Place the tablet in the mouth and allow it to dissolve, then swallow. While you may take these tablets with water, it is not necessary to do so. Talk to your [employer] intelligence support regarding the use of this medicine in children. Special care may be needed. What side effects may I notice from receiving this medicine? Side effects that you should report to your doctor or health manager medicare as soon as possible: allergic reactions like skin rash, itching or hives, swelling of the face, lips, or tongue breathing problems dizziness fast or irregular heartbeat feeling faint or lightheaded, falls fever and chills swelling of the hands and feet tightness in the chest Side effects that usually do not require medical attention (report to your doctor or health manager medicare if they continue or are bothersome): constipation or diarrhea headache What may interact with this medicine? Do not take this medicine with any of the following medications: -apomorphine -cisapride -dofetilide -dronedarone -pimozide -thioridazine -ziprasidone This medicine may also interact with the following medications: -carbamazepine -phenytoin -rifampicin -tramadol -other medicines that prolong the QT interval (cause an abnormal heart rhythm) What if I miss a dose? If you miss a dose, take it as soon as you can. If it is almost time for your next dose, take only that dose. Do not take double or extra doses. Where should I keep my medicine? Keep out of the reach of children. Store between 2 and 30 degrees C (36 and 86 degrees F). Throw away any unused medicine after the expiration date. What should I tell my health care provider before I take this medicine? They need to know if you have any of these conditions: heart disease history of irregular heartbeat liver disease low levels of magnesium or potassium in the blood an unusual or allergic reaction to ondansetron, granisetron, other medicines, foods, dyes, or preservatives or trying to get breast-feeding What should I watch for while using this medicine? Check with your doctor or health manager medicare as soon as you can if you have any sign of an allergic reaction. Hydrocodone Bitartrate, Acetaminophen Oral tablet What is this medicine? ACETAMINOPHEN; HYDROCODONE (a set a OUSMANE андрей fen; osmel droe KOE done) is a pain reliever. It is used to treat mild to moderate pain. How should I use this medicine? Take this medicine by mouth. Swallow it with a full glass of water. Follow the directions on the prescription label. If the medicine upsets your stomach, take the medicine with food or milk. Do not take more than you are told to take. Talk to your [employer] support regarding the use of this medicine in children. This medicine is not approved for use in children. What side effects may I notice from receiving this medicine? Side effects that you should report to your doctor or health manager medicare as soon as possible: allergic reactions like skin rash, itching or hives, swelling of the face, lips, or tongue breathing problems confusion feeling faint or lightheaded, falls stomach pain yellowing of the eyes or skin Side effects that usually do not require medical attention (report to your doctor or health manager medicare if they continue or are bothersome): nausea, vomiting stomach upset What may interact with this medicine? alcohol antihistamines isoniazid medicines for depression, anxiety, or psychotic disturbances medicines for sleep muscle relaxants naltrexone narcotic medicines (opiates) for pain phenobarbital ritonavir tramadol What if I miss a dose? If you miss a dose, take it as soon as you can. If it is almost time for your next dose, take only that dose. Do not take double or extra doses. Where should I keep my medicine? Keep out of the reach of children. This medicine can be abused. Keep your medicine in a safe place to protect it from theft. Do not share this medicine with anyone. Selling or giving away this medicine is dangerous and against the law. Store at room temperature between 15 and 30 degrees C (59 and 86 degrees F). Protect from light. Keep container tightly closed. Throw away any unused medicine after the expiration date. Discard unused medicine and used packaging carefully. Pets and children can be harmed if they find used or lost packages. What should I tell my health care provider before I take this medicine? They need to know if you have any of these conditions: brain tumor Crohn's disease, inflammatory bowel disease, or ulcerative colitis drink more than 3 alcohol-containing drinks per day drug abuse or addiction head injury heart or circulation problems kidney disease or problems going to the bathroom liver disease lung disease, asthma, or breathing problems an unusual or allergic reaction to acetaminophen, hydrocodone, other opioid analgesics, other medicines, foods, dyes, or preservatives or trying to get breast-feeding What should I watch for while using this medicine? Tell your doctor or health manager medicare if your pain does not go away, if it gets worse, or if you have new or a different type of pain. You may develop tolerance to the medicine. Tolerance means that you will need a higher dose of the medicine for pain relief. Tolerance is normal and is expected if you take the medicine for a long time. Do not suddenly stop taking your medicine because you may develop a severe reaction. Your body becomes used to the medicine. This does NOT mean you are addicted. Addiction is a behavior related to getting and using a drug for a non-medical reason. If you have pain, you have a medical reason to take pain medicine. Your doctor will tell you how much medicine to take. If your doctor wants you to stop the medicine, the dose will be slowly lowered over time to avoid any side effects. You may get drowsy or dizzy when you first start taking the medicine or change doses. Do not drive, use machinery, or do anything that may be dangerous until you know how the medicine affects you. Stand or sit up slowly. There are different types of narcotic medicines (opiates) for pain. If you take more than one type at the same time, you may have more side effects. Give your health care provider a list of all medicines you use. Your doctor will tell you how much medicine to take. Do not take more medicine than directed. Call emergency for help if you have problems breathing. The medicine will cause constipation. Try to have a bowel movement at least every 2 to 3 days. If you do not have a bowel movement for 3 days, call your doctor or health manager medicare. Too much acetaminophen can be very dangerous. Do not take Tylenol (acetaminophen) or medicines that contain acetaminophen with this medicine. Many non-prescription medicines contain acetaminophen. Always read the labels carefully. Ketorolac Tromethamine Oral tablet What is this medicine? KETOROLAC (amanda toe ROLE ak) is a non-steroidal anti-inflammatory drug (NSAID). It is used for a short while to treat moderate to severe pain, including pain after surgery. It should not be used for more than 5 days. How should I use this medicine? Take this medicine by mouth with a full glass of water. Follow the directions on the prescription label. Take your medicine at regular intervals. Do not take your medicine more often than directed. Do not take more than the recommended dose. A special MedGuide will be given to you by the pharmacist with each prescription and refill. Be sure to read this information carefully each time. Talk to your [employer] ia[employer] support regarding the use of this medicine in children. While this drug may be prescribed for children as young as 16 years of age for selected conditions, precautions do apply. Patients over 65 years old may have a stronger reaction and need a smaller dose. What side effects may I notice from receiving this medicine? Side effects that you should report to your doctor or health manager medicare as soon as possible: allergic reactions like skin rash, itching or hives, swelling of the face, lips, or tongue black or tarry stools breathing problems changes in vision chest pain high blood pressure nausea or vomiting redness, blistering, peeling or loosening of the skin, including inside the mouth severe abdominal pain slurred speech or weakness on one side of the body unexplained weight gain or swelling unusual bleeding or bruising unusually weak or tired yellowing of eyes or skin Side effects that usually do not require medical attention (report to your doctor or health manager medicare if they continue or are bothersome): diarrhea dizziness headache heartburn What may interact with this medicine? Do not take this medicine with any of the following medications: aspirin and aspirin-like medicines cidofovir methotrexate NSAIDs, medicines for pain and inflammation, like ibuprofen or naproxen pemetrexed probenecid This medicine may also interact with the following medications: alcohol alendronate alprazolam carbamazepine cyclosporine diuretics flavocoxid fluoxetine ginkgo lithium medicines for high blood pressure like enalapril medicines that affect platelets like pentoxifylline medicines that treat or prevent blood clots like heparin, warfarin muscle relaxants phenytoin steroid medicines like prednisone or cortisone thiothixene What if I miss a dose? If you miss a dose, take it as soon as you can. If it is almost time for your next dose, take only that dose. Do not take double or extra doses. Where should I keep my medicine? Keep out of the reach of children. Store at room temperature between 20 and 25 degrees C (68 and 77 degrees F). Throw away any unused medicine after the expiration date. What should I tell my health care provider before I take this medicine? They need to know if you have any of these conditions: asthma bleeding problems like hemophilia cigarette smoker drink more than 3 alcohol containing drinks a day heart disease or circulation problems such as heart failure or leg edema (fluid retention) high blood pressure kidney disease liver disease stomach bleeding or ulcers an unusual or allergic reaction to ketorolac, aspirin, other NSAIDs, other medicines, foods, dyes, or preservatives or trying to get breast-feeding What should I watch for while using this medicine? Tell your doctor or health manager medicare if your pain does not get better. Talk to your doctor before taking another medicine for pain. Do not treat yourself. This medicine does not prevent heart attack or stroke. In fact, this medicine may increase the chance of a heart attack or stroke. The chance may increase with longer use of this medicine and in people who have heart disease. If you take aspirin to prevent heart attack or stroke, talk with your doctor or health manager medicare. Do not take medicines such as ibuprofen and naproxen with this medicine. Side effects such as stomach upset, nausea, or ulcers may be more likely to occur. Many medicines available without a prescription should not be taken with this medicine. This medicine can cause ulcers and bleeding in the stomach and intestines at any time during treatment. Do not smoke cigarettes or drink alcohol. These increase irritation to your stomach and can make it more susceptible to damage from this medicine. Ulcers and bleeding can happen without warning symptoms and can cause . You may get drowsy or dizzy. Do not drive, use machinery, or do anything that needs mental alertness until you know how this medicine affects you. Do not stand or sit up quickly, especially if you are an older patient. This reduces the risk of dizzy or fainting spells. This medicine can cause you to bleed more easily. Try to avoid damage to your teeth and gums when you brush or floss your teeth. You have been given the following additional information: Kidney Stone W/ Colic Ondansetron Oral disintegrating tablet Hydrocodone Bitartrate, Acetaminophen Oral tablet Ketorolac Tromethamine Oral tablet Do not work today, tomorrow. (Electronically signed by Lissy Arias A.R.N.P. 08/05/2016 17:46)
--- NOTE | 2016-08-05 17:47 | ED MED RECONCILIATION SUMMARY ---
Patient: AMY CHA Medication Reconciliation Report [facility] VisitID: [id number] [place] [address] 51y, F Registration Date/Time: 08/05/2016 Weight: 56.6 kg Height/Length: 61 in. BMI: 23.6 ALLERGIES: None The patient's Home Medications are listed below: THE FOLLOWING MEDICATIONS NEED TO BE RECONCILED: Prozac Oral 40mg, daily Wellbutrin Oral 150 mg, daily The source(s) of the original Home Medication information: Not obtained. The following Medications were given to the patient in the Emergency Department: IV NS IV Fluids bolus 0, then 1000 mL/hr, administered: 08/05/2016 2:05:00 PM Toradol [IVP] IVP 30 mg, administered: 08/05/2016 2:18:00 PM The following Medications were prescribed to the patient: Zofran 4 mg: Take 1 orally every six hours as needed for nausea/vomiting. Dispense ten (10). No refills. Substitution is permissible. -- Lissy Arias, A.R.N.P. [place] 5 mg / 325 mg tablets: take 1 to 2 orally every 6 hours as needed for pain. Dispense fifteen (15). No refills. Substitution is permissible. -- Lissy Arias A.R.N.P. Toradol 10 mg tablets: Take 1 tablet orally every 6 hours as needed. Dispense fifteen (15). No refills. Substitution is permissible. -- Lissy Arias A.R.N.P.
== END 2016-08-05 16:25 | disposition home or self-care (01) ==
LOC: ED SRH 13:37
DX: N13.2 Hydronephrosis with renal and ureteral calculous obstruction (principal); Z79.899 Other long term (current) drug therapy
CPT/HCPCS: 90004; 90100; 92235; 92530; 93070; 95059